=== PATIENT | male | born 1940 | race Two or more races ===

== ENCOUNTER 2016-07-17 06:47 | Day surgery (SDC) | payer MEDICARE, OTHER ==
[2016-07-17] VITALS (7 sets, daily range): BP systolic 109–127; BP diastolic 63–82
[~2016-07-17] VITALS: Ht 170.2 cm; Wt 88.9 kg
[~2016-07-17 06:47] MED LIST: AMLODIPINE BESY10 MG ORAL; ATORVASTATIN CA10 MG ORAL; AVODART0.5 MG ORAL; CALCIUM + VITA1 EAC2 ORAL; DOXAZOSIN MESYLA4 MG ORAL; EDARBI80 MG ORAL; FISH OIL ORAL; GLUCOSAMINE1000 M1 ORAL; LEVOTHYROXINE50 MCG ORAL; PRADAXA75 MG ORAL; VIT ORAL
[2016-07-17] MEDS ORDERED: LR 1000ml ONE (06:48)
[2016-07-17] MEDS ORDERED: Propofol 10mg/ml 20ml IV ONE (06:48)
[2016-07-17] MEDS ORDERED: LR 1000ml 1,000 ML IVLG SCH ×2 (07:00→08:03)
--- NOTE | 2016-07-17 07:56 | Short Stay Surgery H&P ---
History of Present Illness History of Present Illness Chief Complaint Abdominal pains HPI Issac Martínez is a 75 year old male who was admitted on for Gerd,Abdominal Pain Patient History Allergies: Coded Allergies: No Known Allergies (Unverified , 06/24/12) PAST MEDICAL HISTORY: (1) Hypotension (2) Hypothyroid Past Surgeries: Social History: Medication History Scheduled Amlodipine Besylate* (Amlodipine Besylate*), 10 MG ORAL DAILY, (Reported) Azilsartan Medoxomil (Edarbi), 80 MG ORAL DAILY, (Reported) Calcium Carb & Cit/Vitamin D3 (Calcium + Vitamin D3 Caplet), 1 TAB ORAL DAILY, ( Reported) Dabigatran Etexilate Mesylate (Pradaxa), 75 MG ORAL DAILY, (Reported) Doxazosin Mesylate* (Doxazosin Mesylate*), 4 MG ORAL BEDTIME, (Reported) Dutasteride (Avodart), 0.5 MG ORAL BEDTIME, (Reported) Levothyroxine Sodium* (Levothyroxine Sodium*), 50 MCG ORAL DAILY, (Reported) Om-3/Dha/Epa/Fish Oil/Vit D3 (Fish Oil + Vitamin D-3 Softgel), 1 CAP ORAL DAILY, (Reported) Discontinued Medications Atorvastatin Calcium* (Lipitor*), 20 MG ORAL BEDTIME, (Reported) Discontinued Reason: Pt stopped taking med Glucosamine Sulfate 2KCL (Glucosamine), 1,500 MG ORAL DAILY, (Reported) Discontinued Reason: Pt stopped taking med Review of Systems Cardiovascular: Reports: no symptoms Respiratory: Reports: no symptoms Skeletal: Reports: no symptoms Gastrointestinal: Reports: gastro esophageal reflux disease Genitourinary: Reports: no symptoms Neurologic: Reports: no symptoms Endocrine: Reports: no symptoms Hematologic: Reports: no symptoms Physical Exam Vital Signs Last Vital Signs Date Time Temp Pulse Resp B/P Pulse Ox O2 Delivery O2 Flow Rate FiO2 07/17/16 07:42 98.2 49 18 127/70 98 Room Air Skin: normal HENT: normal Heart: normal Lungs: normal Abdomen: normal Extremities: normal Genitourinary: normal Plan Plan of Care Upper and lower GI endoscopies Preop Interventions None. Summary of Findings See the reports Final Diagnosis: Attestation Are the patient's medical conditions optimized for surgery? Attestation Response: yes MICKY YANES Jul 17, 2016 07:56
--- NOTE | 2016-07-17 07:57 | Pre-Procedure Note/Attestation ---
Pre-Procedure Note/Attestation Complete Prior to Procedure Planned Procedure: left Procedure Narrative: Upper and lower GI endoscopies. Indications for Procedure Pre-Operative Diagnosis: R/O Peptic ulcer and colon polyp/cancer Attestation I attest that I discussed the nature of the procedure; its benefits; risks and complications; and alternatives (and the risks and benefits of such alternatives ), prior to the procedure, with the patient (or the patient's legal district representative). I attest that, if there was a reasonable possibility of needing a blood transfusion, the patient (or the patient's legal district representative) was given the [facility] standardized written summary, pursuant to the [employer] Blood Safety Act ([place] Health and Safety Code # 1645, as amended). I attest that I re-evaluated the patient just prior to the surgery and that there has been no change in the patient's H&P, except as documented below: FARZANA,SAID Jul 17, 2016 07:57
--- NOTE | 2016-07-17 08:14 | Anethesia Preoperative Eval ---
Anesthesia Pre-op PMH/ROS General Date of Evaluation: Jul 17, 2016 Time of Evaluation: 07:50 Anesthesiologist: Yarelis ASA Score: ASA 3 Mallampati Score Class I : Soft palate, uvula, fauces, pillars visible Class II: Soft palate, uvula, fauces visible Class III: Soft palate, base of uvula visible Class IV: Only hard plate visible Mallampati Classification: Class III Surgeon: Flor Diagnosis: abdominal pain, screening Surgical Procedure: EGD, colonoscopy Allergies: Coded Allergies: No Known Allergies (Unverified , 06/24/12) Medications: see eMAR Past Medical History Cardiovascular: Reports: HTN, arrhythmia - Currently being evluated for A-fib, Denies: CAD, DC, other, valve dz Pulmonary: Denies: COPD, MELODY, asthma, other Gastrointestinal/Genitourinary: Denies: CRI, ESRD, GERD, other Neurologic/Psychiatric: Denies: CVA, TIA, dementia, depression/anxiety, other Endocrine: Reports: hypothyroidism, Denies: DM, other, steroids HEENT: Denies: [place] (L), [place] (R), cataract (L), cataract (R), glaucoma, other Hematology/Immune: Denies: DVT, anemia, bleeding disorder, other Musculoskeletal/Integumentary: Denies: DDD, DJD, OA, RA, edema, other PMH Narrative: HTN, hypothyroid, BPH Anesthesia Pre-op Phys. Exam Physician Exam Last Vital Signs Date Time Temp Pulse Resp B/P Pulse Ox O2 Delivery O2 Flow Rate FiO2 07/17/16 07:42 98.2 49 18 127/70 98 Room Air Constitutional: NAD Neurologic: CN 2-12 intact Cardiovascular: RRR, no M/R/G Respiratory: CTA Gastrointestinal: S/NT/ND Airway Exam Mallampati Score: Class III MO: full ROM: full Anesthesia Pre-op A/P Risk Assessment & Plan Assessment: GD, colonoscopy Plan: GA, TIVA Status Change Before Surgery: No Pre-Antibiotics Drug: None YADIRA MELO M.D. Jul 17, 2016 08:14
[2016-07-17] MEDS ORDERED: fentaNYL 100 mcg/2 mL IV PRN (08:15)
--- NOTE | 2016-07-17 08:15 | Immediate Post-Op Evaluation ---
Immediate Post-Op Evalulation Immediate Post-Op Evalulation Procedure: EGD, Colonoscopy Date of Evaluation: Jul 17, 2016 Time of Evaluation: 08:35 IV Fluids: 250 Blood Pressure Systolic: 109 Blood Pressure Diastolic: 63 Pulse Rate: 43 Respiratory Rate: 18 O2 Sat by Pulse Oximetry: 25 Temperature (Fahrenheit): 97.1 Pain Score (1-10): 0 Nausea: No Vomiting: No Complications No complication Patient Status: awake, patent, none Hydration Status: adequate Drug: None YADIRA MELO M.D. Jul 17, 2016 08:15
--- NOTE | 2016-07-17 08:25 | Endoscopy Procedure Note ---
Endoscopy Procedure Note Indication for Procedure: Abdominal pains and history of colon polyps. Procedures Performed: EGD - Small Hiatal Hernia with 7 mm submucosal benigyn looking lesion with normal mucosa coverage over the posterior wall of antrum biosped, otherwise royal upper GI endoscopy., colonoscopy - Minimal internal hemorrhoids. Colonic diverticulosis. Diminutive polyp at cecal base removed by cold snare. Pt Tolerated Procedure Well: Yes Estimated Blood Loss: none Anesthesiologist: Dr. Santoyo Anesthesia: moderate sedation Medication Given: see anesthesia record Implant(s) used?: No 50 yrs or older w/o bx or poly: Yes 10yrs. F/U not recommended: Yes 10 yrs. F/U needed: Yes 18 years or older w/prev. colo: Yes Med reason:<3 yrs.: System Reason:<3 yrs.: MICKY YANES Jul 17, 2016 08:25
--- NOTE | 2016-07-17 08:26 | Discharge Instructions ---
Discharge Instructions Discharge Instructions Follow up with: Visit the doctor after two weeks. For Congestive Heart Failure Reminder Report to your physician any weight gain of 5 pounds or more in one week. MICKY YANES Jul 17, 2016 08:26
--- NOTE | 2016-07-17 08:36 | 48 Hour Post Anesthesia Eval ---
Post Anesthesia Evaluation Procedure: EGD, Colonoscopy Date of Evaluation: Jul 17, 2016 Time of Evaluation: 09:00 Blood Pressure Systolic: 113 0: 68 Pulse Rate: 55 Respiratory Rate: 15 O2 Sat by Pulse Oximetry: 97 Airway: patent Nausea: No Vomiting: No Pain Intensity: 0 Hydration Status: adequate Cardiopulmonary Status: Stable. Patient with holter monitor. Mental Status/LOC: patient returned to baseline Follow-up Care/Observations: As per surgery Post-Anesthesia Complications: No anesthetic complication Follow-up care needed: N/A YADIRA MELO M.D. Jul 17, 2016 08:36
[2016-07-17] MEDS ORDERED: LR 1000ml 1,000 ML IV SCH (10:03)
--- NOTE | 2016-07-17 14:00 | Procedure Note ---
DATE OF PROCEDURE: 07/17/2016 SURGEON: Arpita Ray M.D. REFERRING PHYSICIAN: Dionisio Borjas M.D. PREOPERATIVE DIAGNOSIS: Abdominal pain and history of gastroesophageal reflux. POSTOPERATIVE DIAGNOSES: 1. Small hiatal hernia. 2. Incidental finding of 7 millimeters submucosal soft tissue, benign looking lesion, possibly consistent with lipoma versus leiomyoma, biopsied, located in the antral area. Otherwise, normal study. MEDICATIONS USED: By Dr. Baker. INSTRUMENT: GIF Olympus upper gastrointestinal video endoscope. DESCRIPTION OF PROCEDURE: The patient after arriving in the endoscopy unit was told about risks and benefits of the procedure, which he accepted and signed the informed consent. He was then put on the left lateral decubitus position. After adequate IV sedation, the scope was gently passed through the cricopharyngeal area, was lodged into the upper esophagus, and gradually advanced towards gastroesophageal junction. The entire length of the esophagus looked normal, however, there was evidence of a small hiatal hernia without Grace's or lesions or ulceration etc. At this time, the scope was advanced into the stomach. Gastric cavity was distended and gradually in credit control officer fashion the areas of the fundus and and the antrum were examined closely. The only findings here where the incidental finding of submucosal lesion located over the posterior wall of the greater curvature in the mid part of the antrum, which looked completely benign, as I mentioned the mucosal surface was completely intact and normal and this lesion was submucosal. A biopsy was made from this lesion and subsequently the scope was passed through the pylorus. First and second portion of duodenum were found to be completely normal. Finally, the scope was pulled back into the stomach. A retroflexion maneuver was applied. The area of the gastroesophageal junction was examined in a closer fashion, which did not reveal any other pathology. Finally, the scope was pulled out and the procedure was terminated. The patient tolerated the procedure well. Arpita Ray M.D. DR: KALLIE JOB#: [id number] CC: Dionisio Borjas M.D.
--- NOTE | 2016-07-17 14:15 | Procedure Note ---
DATE OF PROCEDURE: 07/17/2016 SURGEON: Arpita Ray M.D. REFERRING PHYSICIAN: Dionisio Borjas M.D. PROCEDURE: Total colonoscopy with polypectomy. PREOPERATIVE DIAGNOSES: History of colon polyp and abdominal pain. POSTOPERATIVE DIAGNOSES: 1. Minimal internal hemorrhoid. 2. Diverticulosis of the colon. 3. Incidental finding of the diminutive small colonic polyp located over the base of the cecum, removed with cold snare. MEDICATION USED: Per Dr. Baker, anesthesiologist. INSTRUMENT: GIF Olympus video colonoscope. DESCRIPTION OF PROCEDURE: The patient after in the arriving endoscopy unit was told about risks and benefits of the procedure, which he accepted and signed the informed consent. He was then put on the left lateral decubitus position. After adequate IV sedation, the scope gently passed through the anal area, which revealed evidence of minimal internal hemorrhoids, which were not friable. At this time, the scope was passed gradually into rectosigmoid area, which was covered with an diverticular lesions all the way to the splenic flexure and mid transverse colon. There was no any intraluminal pathology other than what is stated and no polyps, tumors, or bleeding site ulcers etc. was found. Gradually the scope was advanced toward the hepatic flexure, was guided into the ascending colon all the way to the base of the cecum and seen an incidental finding was presence of small 4-5 millimeters diminutive polypoid lesion, which looked completely benign and it was grabbed with cold snare and removed. Ultimately, I feel that the specimen could not be recovered, however, as I mentioned it was completely within normal , was consistent with benign polyps of the colon. Finally, within 7 minutes the scope was gradually pulled out. The colon cleanup was also substandard and multiple irrigation had to be applied. The patient tolerated the procedure well and left the endoscopy room in good condition. Arpita Ray M.D. DR: KALLIE JOB#: [id number] CC:
== END 2016-07-17 12:30 | disposition home or self-care (01) ==
LOC: GAS 06:47
DX: K29.50 Unspecified chronic gastritis without bleeding (principal); K44.9 Diaphragmatic hernia without obstruction or gangrene; K31.9 Disease of stomach and duodenum, unspecified; D12.0 Benign neoplasm of cecum; K64.8 Other hemorrhoids; K57.30 Diverticulosis of large intestine without perforation or abscess without bleeding; Z86.010 Personal history of colon polyps; E03.9 Hypothyroidism, unspecified; I10 Essential (primary) hypertension; I49.9 Cardiac arrhythmia, unspecified; N40.0 Benign prostatic hyperplasia without lower urinary tract symptoms
CPT/HCPCS: 43239; 45385; J2704; J7120; 94003; 94150